=== PATIENT | female | born 1970 | race African-American/Black ===

== ENCOUNTER 2018-04-29 14:42 | Emergency (ER) | payer OTHER ==
[~2018-04-29] VITALS: Ht 167.6 cm; Wt 88.0 kg
[2018-04-29 15:30] LABS: ABSOLUTE BASOPHILS 0.1 thou/uL (0.0-0.2); ABSOLUTE EOSINOPHILS 0.4 thou/uL (0.0-0.7); ABSOLUTE LYMPHOCYTES 2.8 thou/uL (0.8-5.3); ABSOLUTE MONOCYTES 0.7 thou/uL (0.0-1.2); ABSOLUTE NEUTROPHILS 3.5 thou/uL (1.6-8.1); BASOPHILS 1.1 %; EOSINOPHILS 5.6 %; HEMATOCRIT 39.6 % (37.0-47.0); LYMPHOCYTES 37.1 %; MCH 28.7 pg (26.0-34.0); MCHC 32.7 g/dL (28.0-37.0); MCV 87.6 fL (80.0-100.0); MPV 7.8 fl. (7.2-11.1); NUCLEATED RBCS 0 /100WBC; PLATELET COUNT* 357 thou/uL (150-400); POLYS 47.2 %; RBC 4.52 mil/uL (4.20-5.00); RDW-CV 15.7 % (10.5-14.5); WBC 7.5 thou/uL (4.0-11.0)
[2018-04-29 15:47] LABS: ALBUMIN 3.5 g/dL (3.4-5.0); ALKALINE PHOSPHATASE 55 U/L (46-116); ANION GAP 7 mmol/L (7-16); BUN 9 mg/dL (7-18); CALCIUM 9.1 mg/dL (8.5-10.1); CHLORIDE 105 mmol/L (98-107); CO2 26 mmol/L (21-32); CREATININE 0.8 mg/dL (0.6-1.3); GLUCOSE 87 mg/dL (70-99); POTASSIUM 4.9 mmol/L (3.5-5.1); SGOT 27 U/L (15-37); SGPT 19 U/L (30-65); SODIUM 138 mmol/L (136-145); TOTAL BILIRUBIN 0.7 mg/dL (<0.1-1.0); TOTAL PROTEIN 7.5 g/dL (6.4-8.2); TROPONIN-I LEVEL <0.06 ng/mL (<0.06)
[2018-04-29 16:01] LABS: URINE BILIRUBIN NEGATIVE (Negative); URINE BLOOD 1+ (Negative); URINE CLARITY CLEAR; URINE COLOR YELLOW; URINE GLUCOSE-RANDOM NEGATIVE (Negative); URINE KETONES NEGATIVE (Negative); URINE LEUKOCYTES-REFLEX NEGATIVE (Negative); URINE NITRITE-REFLEX NEGATIVE (Negative); URINE PROTEIN NEGATIVE (Negative); URINE UROBILINOGEN 0.2 E.U./dl (0.2-1.0)
[2018-04-29] MEDS ORDERED: SCOPOLAMINE1 EACH TRANSDERM (16:14)
[2018-04-29] MEDS ORDERED: ANTIVERT25 MG PO (16:14)
[2018-04-29 16:23] LABS: SQUAMOUS >10 Many /LPF (0-3)
[2018-04-29 16:26] LABS: URINE WBC-REFLEX 0-5 Rare /HPF (0-5)
[2018-04-29 16:27] LABS: BACTERIA-REFLEX >30 Many /HPF (None Seen); URINE RBC 0-2 Rare /HPF (0-2)
[2018-04-29 16:28] LABS: CASTS None Seen /LPF (None Seen); CRYSTALS None Seen /LPF (None Seen)
[2018-04-29 16:29] VITALS: BP 112/70
--- NOTE | 2018-04-30 10:16 | EKG ---
[place] [address] ELECTROCARDIOGRAM REPORT Name: KATARZYNA FERMIN Room: [facility]#: [id number] Admission: 04/29/18 Attend Phys: Discharge: 04/29/18 Date of : 72 Report #: [id number] THIS REPORT FOR: //name// [facility] ED Test Date: 2018-04-29 Test Time: 14:53:33 Pat Name: KATARZYNA FERMIN Department: Room: Gender: F Batch Mixer: Domingo NELSON : 1970 Requested By: Mar Sierra Order Number: [id number] MD: Arthur Ayala Measurements Intervals Withams Rate: 93 P: 26 RI: 156 QRS: 9 QRSD: 92 T: 25 QT: 333 QTc: 415 Interpretive Statements Sinus rhythm No previous ECG available for comparison Electronically Signed On 04-30-2018 10:16:11 CDT by Arthur Ayala [email or web address] <ELECTRONICALLY SIGNED> By: Arthur Ayala MD, [facility] 04/30/18 1016 [id number] 1453 Arthur Ayala MD, FACC /EPI
== END 2018-04-29 16:30 | disposition home or self-care (01) ==
LOC: M.ERS 14:42
PROVIDERS: Physician Assistant
DX: R42 Dizziness and giddiness (principal)

== ENCOUNTER 2018-07-24 09:17 | Emergency (ER) | payer OTHER ==
[~2018-07-24] VITALS: Ht 154.9 cm; Wt 87.1 kg
[~2018-07-24 09:17] MED LIST: ANTIVERT25 MG PO; SCOPOLAMINE1 EACH TRANSDERM
[2018-07-24] MEDS ORDERED: VENTOLIN HFA 1818 GM INH (10:43)
[2018-07-24] MEDS ORDERED: PREDNISONE50 MG PO (10:43)
[2018-07-24] MEDS ORDERED: TESSALON PERLE100 MG PO (10:56)
[2018-07-24 10:58] VITALS: BP 138/68
== END 2018-07-24 10:59 | disposition home or self-care (01) ==
LOC: M.ERS 09:17
DX: J40 Bronchitis, not specified as acute or chronic (principal); F17.210 Nicotine dependence, cigarettes, uncomplicated

== ENCOUNTER 2021-09-02 11:35 | Emergency (ER) | payer OTHER ==
[~2021-09-02] VITALS: Ht 154.9 cm; Wt 90.3 kg
[~2021-09-02 11:35] MED LIST changes: +PREDNISONE50 MG PO; +TESSALON PERLE100 MG PO; +VENTOLIN HFA 1818 GM INH
[2021-09-02 13:20] VITALS: BP 161/81
== END 2021-09-02 13:22 | disposition home or self-care (01) ==
LOC: M.ERS 11:35
DX: H10.9 Unspecified conjunctivitis (principal); F17.210 Nicotine dependence, cigarettes, uncomplicated